=== PATIENT | male | born 1995 | race African-American/Black ===

== ENCOUNTER 2021-04-09 00:29 | Emergency (ER) | payer OTHER, SELFPAY ==
[~2021-04-09] VITALS: Ht 182.9 cm; Wt 70.3 kg
[2021-04-09] MEDS ORDERED: PRED10PA PO (00:43)
[2021-04-09] MEDS ORDERED: IBUP80TA PO (00:43)
[2021-04-09] MEDS ORDERED: LIDOCAINE 5% (LIDODERM) PATCH TD ONE (07:15)
[2021-04-09] MEDS ORDERED: KETOROLAC 30 MG/ML 1ML VIAL IV ONE (07:15)
[2021-04-09] MEDS ORDERED: BACLOFEN 10 MG TAB PO ONE (07:15)
[2021-04-09] MEDS ORDERED: methylPREDNISolone 125MG 2ML VIAL IV ONE (07:15)
[2021-04-09 07:54] LABS: BASO % 0.2 % (0.0-1.0); EOS % 0.1 % (0.0-3.0); HEMATOCRIT 32.4 % (42.0-52.0); LYMPH # 1.6 10^3/uL (1.5-5.0); LYMPH % 10.8 % (24.0-44.0); MEAN CORPUSCULAR HEMOGLOBIN 26.4 pg (27.0-33.0); MEAN CORPUSCULAR HGB CONC 30.9 g/dl (32.0-36.5); MEAN CORPUSCULAR VOLUME 85.5 fl (80.0-96.0); MONO # 1.5 10^3/uL (0.0-0.8); MONO % 10.3 % (2.0-8.0); NEUTROPHILS # 11.2 10^3/uL (1.5-8.5); PLATELET COUNT, AUTOMATED 367 10^3/uL (150-450); RED BLOOD COUNT 3.79 10^6/uL (4.30-6.10); WHITE BLOOD COUNT 14.3 10^3/uL (4.0-10.0)
[2021-04-09 08:04] LABS: BLOOD UREA NITROGEN 13 MG/DL (7-18); CALCIUM LEVEL 8.4 MG/DL (8.5-10.1); CARBON DIOXIDE LEVEL 25 MEQ/L (21-32); CHLORIDE LEVEL 106 MEQ/L (98-107); GLOMERULAR FILTRATION RATE > 60.0 (>60); GLUCOSE, FASTING 73 MG/DL (70-100); POTASSIUM SERUM 3.4 MEQ/L (3.5-5.1); SODIUM LEVEL 139 MEQ/L (136-145)
[2021-04-09 08:15] LABS: ERYTHROCYTE SEDIMENTATION RATE 89 mm/hr (0-15)
--- NOTE | 2021-04-09 08:37 | REP ---
INDICATION: R low back pain radiating to RLE. COMPARISON: None. TECHNIQUE: Helical scanning is acquired 4 mm axial images re-formatted. Coronal and sagittal multiplanar re-formation images are included. FINDINGS: Lumbar vertebral body heights are preserved alignment is normal. There is a pattern of diffuse sclerosis in the L5 and to a lesser extent the L4 vertebral bodies. Similar sclerotic changes are seen in the right side of the 1st sacral segment. There are erosive scalloping changes to the anterior margin of the L5 vertebral body, the right lateral margin of the L5 vertebral body, and scalloping and aggressive periosteal reaction changes are seen along the right anterior margin of the L4 vertebral body. The right transverse process at L5 is eroded and there are some erosive changes along the anterior aspect of the 1st sacral segment on the right. There is a large soft tissue mass effect adjacent to the right side of the L4, L5 and S1 vertebral segments. This appears to extend to the left of midline across the L5. This low-density process displaces the right psoas muscle anteriorly. There is no definite evidence of intraspinal involvement although the right neural foramina at L4-5 and L5-S1 appear to be involved and perhaps somewhat expanded. There is involvement of the posterior elements including the lamina and facets at L5. The endplates at L5-S1, L4-5, and L3-4 are intact. There is anterior osteophyte formation bridging the L5-S1 and L4-5 discs and some osteophyte formation at has occurred at L3-4. The SI joints show no erosive change. There appears to be a small quantity of fluid in the pelvic reflections. I suspect bilateral internal iliac lymphadenopathy. There is no evidence of hydronephrosis. 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 Soft tissue sarcoma is a possibility. Bony changes are chronic and therefore, infectious etiology is considered unlikely. Recommend CT study of the abdomen and pelvis with IV and oral contrast. Consider CT study of the chest as well. <Electronically signed by Edwin Quiñonez > 04/09/21 [id number]
--- NOTE | 2021-04-09 08:40 | REP ---
INDICATION: R hip pain. COMPARISON: None. TECHNIQUE: AP and frogleg views of each hip and AP view of the pelvis are provided. Five views. FINDINGS: There are lytic bony destructive changes seen along the superior margin of the 1st sacral segment on the right. The right transverse process at L5 is also involved and substantially eroded. The L5 vertebral body appears somewhat sclerosis sclerotic. Sacrum is otherwise intact. SI joints and symphysis pubis are unremarkable. Hip joint spaces are preserved. Femoral heads are smooth and rounded. No bony destructive lesion is seen in the proximal femurs or elsewhere in the pelvis. IMPRESSION: Bony destructive process at the lumbosacral junction on the right side involving the right transverse process of L5 and the upper sacrum on the right. Otherwise negative bilateral hip study. Please refer to lumbar spine CT report for further details. <Electronically signed by Edwin Quiñonez > 04/09/21 [id number]
[2021-04-09 10:08] LABS: RSV AMPLIFICATION NEGATIVE (NEGATIVE)
[2021-04-09] MEDS ORDERED: MORPHINE 4 MG/ML 1ML VIAL/SYRINGE (J2270) IV ONE (10:15)
[2021-04-09 12:15] VITALS: BP 115/61
[2021-04-09] MEDS ORDERED: **NOTE PATIENT COMMENT** MISC XX SCH (21:00)
== END 2021-04-09 12:18 | disposition short-term general hospital (02) ==
LOC: M ED 00:29
DX: G89.3 Neoplasm related pain (acute) (chronic) (principal); M54.17 Radiculopathy, lumbosacral region; M79.89 Other specified soft tissue disorders; Z88.0 Allergy status to penicillin
CPT/HCPCS: 72131; 73521; 80048; 85025; 85652; 86140; 87631; 96374; 96375; 99284; J1885; J2270; J2930